=== PATIENT | female | born 1965 | race Caucasian/White ===

== ENCOUNTER 2019-01-17 00:13 | Emergency (ER) | payer MEDICAID ==
[~2019-01-17] VITALS: Ht 167.6 cm; Wt 65.0 kg
[2019-01-17 01:10] LABS: BASOPHILS % 0.2 % (0.0-2.0); EOSINOPHILS % 3.5 % (0.0-5.0); HEMATOCRIT. 27.6 % (36.0-48.0); HEMOGLOBIN. 9.2 g/dL (12.0-16.0); LYMPHOCYTES % 15.4 % (20.0-50.0); MEAN CORPUSCULAR HEMOGLOBIN 29.4 pg (28.0-32.0); MEAN CORPUSCULAR VOLUME 88.1 fL (81.0-99.0); MEAN PLATELET VOLUME 8.8 fl (7.4-10.4); MONOCYTES % 11.3 % (2.0-8.0); NEUTROPHILS % 69.6 % (40.0-76.0); PLATELET 342 x1000/uL (130-400); RED BLOOD CELL COUNT 3.13 mill/uL (4.2-5.4)
[2019-01-17 01:30] LABS: CHLORIDE 109 mEq/L (98-107)
[2019-01-17 01:37] LABS: ETHANOL BLOOD < 10 mg/dL
[2019-01-17 03:18] LABS: CLARITY URINE CLEAR (CLEAR); COLOR URINE YELLOW (YELLOW); KETONES URINE NEGATIVE (NEGATIVE); LEUKOCYTE ESTERASE URINE NEGATIVE (NEGATIVE); NITRITE URINE NEGATIVE (NEGATIVE); OCCULT BLOOD URINE NEGATIVE (NEGATIVE); PH URINE 5.5 (4.5-8.0); PROTEIN URINE 2+ (NEGATIVE); SPECIFIC GRAVITY URINE 1.017 (1.005-1.030); UROBILINOGEN URINE 0.2 E.U./dL (0.2-1.0)
[2019-01-17 03:27] LABS: *AMPHETAMINES SCREEN URINE NEGATIVE (NEGATIVE); *BARBITURATES SCREEN URINE NEGATIVE (NEGATIVE); *BENZODIAZEPINES SCREEN URINE PRESUMTIVE POSITIVE (NEGATIVE); *COCAINE SCREEN URINE NEGATIVE (NEGATIVE)
[2019-01-17 03:28] LABS: CANNABINOID URINE SCREEN NEGATIVE (NEGATIVE); METHADONE URINE SCREEN NEGATIVE (NEGATIVE); OPIATES URINE SCREEN NEGATIVE (NEGATIVE); PHENCYCLIDINE URINE SCREEN NEGATIVE (NEGATIVE)
[2019-01-17] MEDS ORDERED: IBUPROFEN 400MG TABLET PO ONE (15:00)
[2019-01-17 15:33] VITALS: BP 132/87
== END 2019-01-17 16:52 | disposition home or self-care (01) ==
LOC: ER 01:10
DX: T40.4X1A Poisoning by other synthetic narcotics, accidental (unintentional), initial encounter (principal); R44.1 Visual hallucinations; E11.9 Type 2 diabetes mellitus without complications; I10 Essential (primary) hypertension; Z88.2 Allergy status to sulfonamides; Y92.89 Other specified places as the place of occurrence of the external cause
CPT/HCPCS: 36415; 80305; 80307; 80320; 80329; 81003; 82962; 93005; 99284; G0480

== ENCOUNTER 2020-09-16 13:52 | Emergency (ER) | payer MEDICAID ==
[~2020-09-16] VITALS: Ht 165.1 cm; Wt 88.0 kg
[2020-09-16] MEDS ORDERED: TRAMADOL 50MG TABLET PO ONE (17:00)
[2020-09-16 17:29] LABS: BASOPHILS % 0.6 % (0.0-2.0); EOSINOPHILS % 5.1 % (0.0-5.0); HEMATOCRIT. 29.3 % (36.0-48.0); HEMOGLOBIN. 9.6 g/dL (12.0-16.0); LYMPHOCYTES % 34.2 % (20.0-50.0); MEAN CORPUSCULAR HEMOGLOBIN 30.9 pg (28.0-32.0); MEAN CORPUSCULAR VOLUME 94.4 fL (81.0-99.0); MEAN PLATELET VOLUME 7.5 fl (7.4-10.4); NEUTROPHILS % 55.1 % (40.0-76.0); PLATELET 473 x1000/uL (130-400); RED CELL DISTRIBUTION WIDTH 14.2 % (11.6-14.6)
[2020-09-16 17:32] LABS: CHLORIDE 113 mEq/L (98-107)
[2020-09-16] MEDS ORDERED: FURO-151 MT (23:26)
[2020-09-16] MEDS ORDERED: PROT40 MT (23:27)
[2020-09-16 23:30] VITALS: BP 158/72
== END 2020-09-16 23:40 | disposition home or self-care (01) ==
LOC: ER 13:52
DX: K21.9 Gastro-esophageal reflux disease without esophagitis (principal); E11.9 Type 2 diabetes mellitus without complications; I10 Essential (primary) hypertension; Z88.2 Allergy status to sulfonamides
CPT/HCPCS: 36415; 71046; 80048; 80076; 82962; 85025; 93005; 99285

== ENCOUNTER 2021-03-13 05:51 | Emergency (ER) | payer MEDICAID ==
[~2021-03-13] VITALS: Ht 165.1 cm; Wt 87.0 kg
[~2021-03-13 05:51] MED LIST: ALPR1TAB2 PO; AMLO10TA4 MT; CYCL10TA7 PO; ESCI20TA PO; FURO-151 MT; GABA-529 PO; GLIP5TAB12 MT; INSLIS SUBCUT; LEVO137T32 MT; LEVVL SQ; PROT40 MT; TRAM100T34 PO; ZOLP10TA2 PO
[2021-03-13] MEDS ORDERED: ACETAMINOPHEN WITH CODEINE 300/30MG TABLET PO ONE (07:00)
[2021-03-13] MEDS ORDERED: T3 PO (08:51)
[2021-03-13] MEDS ORDERED: IBUPROFEN 800MG TABLET PO ONE (09:00)
[2021-03-13 09:11] VITALS: BP 145/79
== END 2021-03-13 09:10 | disposition home or self-care (01) ==
LOC: ER 05:51
DX: M25.512 Pain in left shoulder (principal); E11.9 Type 2 diabetes mellitus without complications; I10 Essential (primary) hypertension; Z98.890 Other specified postprocedural states; Z79.899 Other long term (current) drug therapy; Z88.2 Allergy status to sulfonamides
CPT/HCPCS: 71045; 73030; 93005; 99284

== ENCOUNTER 2021-03-19 15:23 | Inpatient (IN) | payer MEDICAID ==
[~2021-03-19] VITALS: Ht 165.1 cm; Wt 56.7 kg
[~2021-03-19 15:23] MED LIST changes: +T3 PO
[2021-03-19] MEDS ORDERED: SUMATRIPTAN SUCCINATE 6MG/0.5ML VIAL SUBCUT ONE (18:30)
[2021-03-19] MEDS ORDERED: ONDANSETRON 4MG ODT PO ONE (18:30)
[2021-03-19] MEDS ORDERED: CLONIDINE 0.2MG TABLET PO ONE (19:30)
[2021-03-19] MEDS ORDERED: FAMOTIDINE 20MG TABLET PO ONE (19:30)
[2021-03-19] MEDS ORDERED: TRAMADOL 50MG TABLET PO ONE (19:30)
[2021-03-19 19:36] LABS: CLARITY URINE CLEAR (CLEAR); COLOR URINE YELLOW (YELLOW); KETONES URINE TRACE (NEGATIVE); LEUKOCYTE ESTERASE URINE NEGATIVE (NEGATIVE); NITRITE URINE NEGATIVE (NEGATIVE); OCCULT BLOOD URINE TRACE (NEGATIVE); PROTEIN URINE 4+ (NEGATIVE); SPECIFIC GRAVITY URINE 1.023 (1.005-1.030); UROBILINOGEN URINE 0.2 E.U./dL (0.2-1.0)
[2021-03-19 20:17] LABS: BASOPHILS % 0.5 % (0.0-2.0); EOSINOPHILS % 0.2 % (0.0-5.0); HEMOGLOBIN. 9.3 g/dL (12.0-16.0); LYMPHOCYTES % 17.8 % (20.0-50.0); MEAN CORPUSCULAR HEMOGLOBIN 28.2 pg (28.0-32.0); MEAN CORPUSCULAR VOLUME 88.1 fL (81.0-99.0); MEAN PLATELET VOLUME 8.4 fl (7.4-10.4); MONOCYTES % 3.1 % (2.0-8.0); NEUTROPHILS % 78.4 % (40.0-76.0); PLATELET 411 x1000/uL (130-400); RED BLOOD CELL COUNT 3.29 mill/uL (4.2-5.4); RED CELL DISTRIBUTION WIDTH 14.7 % (11.6-14.6)
[2021-03-19] MEDS ORDERED: PROCHLORPERAZINE MALEATE 10MG TABLET PO ONE (20:45)
[2021-03-19] MEDS ORDERED: KETOROLAC 60MG/2ML VIAL IM ONE (20:45)
[2021-03-19] MEDS ORDERED: CALCIUM CHLORIDE 1,000 MG in DEXT 5% WATER 90 ML IV ONE (21:00)
[2021-03-19] MEDS ORDERED: INSULIN REGULAR (HUMULIN R) 300UNITS/3ML VIAL SUBCUT ONE (21:00)
[2021-03-19] MEDS ORDERED: DEXTROSE 50% WATER 50ML SYRINGE IV NR (21:00)
[2021-03-19] MEDS ORDERED: SODIUM POLYSTYRENE SULFONATE 15 G/60 ML BOT PO NR (21:00)
[2021-03-19] MEDS ORDERED: CALCIUM GLUCONATE 1GM PREMIX 50 ML IV NR (21:30)
[2021-03-20] VITALS (7 sets, daily range): BP systolic 124–180; BP diastolic 57–80
[2021-03-20] MEDS ORDERED: NALOXONE HCL 0.4 MG/ML 1ML VIAL IV PRN (01:15)
[2021-03-20] MEDS: DIPHENHYDRAMINE 50MG/ML VIAL IV PRN (01:20)
[2021-03-20] MEDS: ONDANSETRON HCL 4MG/2ML INJ IV PRN ×2 (01:20→13:19)
[2021-03-20] MEDS ORDERED: MEDICATION NOT ON FORMULARY EA (Zolpidem Tartrate (Ambien) 10 MG) PO SCH (01:45)
[2021-03-20] MEDS ORDERED: DEXTROSE 50% WATER 50ML SYRINGE IV PRN ×2 (01:45)
[2021-03-20] MEDS: CLONIDINE 0.2MG TABLET PO PRN (03:15)
[2021-03-20] MEDS: MORPHINE SULFATE 2 MG/ML CPJ (NOT FOR IM USE) IV PRN ×4 (03:15→18:25)
[2021-03-20] MEDS: BLOOD SUGAR DIAGNOSTIC STRIP TEST SCH ×4 (06:38→20:41)
[2021-03-20] MEDS ORDERED: BLOOD SUGAR DIAGNOSTIC STRIP TEST SCH (06:40)
[2021-03-20] MEDS: PANTOPRAZOLE 40MG DR TABLET PO SCH (06:44)
[2021-03-20] MEDS: INSULIN LISPRO 100 UNITS/ML SUBCUT SCH ×4 (06:45→20:41)
[2021-03-20] MEDS: FUROSEMIDE 40MG TABLET PO SCH (08:16)
[2021-03-20] MEDS: HYDROCODONE/ACETAMINOPHEN 5/325MG TABLET PO PRN (08:16)
[2021-03-20] MEDS: LEVOTHYROXINE SODIUM 137MCG TABLET PO SCH (08:17)
[2021-03-20] MEDS: HYDRALAZINE HCL 50MG TABLET PO SCH ×2 (08:17→20:41)
[2021-03-20] MEDS: CITALOPRAM HYDROBROMIDE 10MG TABLET PO SCH (08:17)
[2021-03-20] MEDS: AMLODIPINE 10MG TABLET PO SCH (08:18)
[2021-03-20] MEDS: GABAPENTIN 100MG CAPSULE PO SCH ×3 (08:18→17:30)
[2021-03-20] MEDS: ENOXAPARIN 30MG/0.3ML SYR SUBCUT SCH (08:19)
[2021-03-20] MEDS ORDERED: MEDICATION NOT ON FORMULARY EA (Escitalopram Oxalate (Lexapro) 20 MG) PO SCH (09:00)
[2021-03-20] MEDS ORDERED: ENOXAPARIN 40MG/0.4ML SYR SUBCUT SCH (09:00)
[2021-03-20] MEDS: INSULIN GLARGINE UD 100 UNITS/ML SYR SUBCUT SCH (20:41)
[2021-03-20] MEDS: ZOLPIDEM TARTRATE 5MG TABLET PO PRN (20:42)
[2021-03-21] VITALS: BP 118/51
[2021-03-21 04:00] VITALS: BP 129/59
[2021-03-21] MEDS: BLOOD SUGAR DIAGNOSTIC STRIP TEST SCH ×4 (06:00→21:22)
[2021-03-21] MEDS: PANTOPRAZOLE 40MG DR TABLET PO SCH (06:01)
[2021-03-21] MEDS: INSULIN LISPRO 100 UNITS/ML SUBCUT SCH ×4 (06:01→21:22)
[2021-03-21] MEDS: MORPHINE SULFATE 2 MG/ML CPJ (NOT FOR IM USE) IV PRN ×3 (06:35→19:49)
[2021-03-21 08:00] VITALS: BP 133/77
[2021-03-21] MEDS: ENOXAPARIN 30MG/0.3ML SYR SUBCUT SCH (09:00)
[2021-03-21] MEDS: GABAPENTIN 100MG CAPSULE PO SCH ×3 (09:06→17:27)
[2021-03-21] MEDS: AMLODIPINE 10MG TABLET PO SCH (09:06)
[2021-03-21] MEDS: HYDRALAZINE HCL 50MG TABLET PO SCH ×2 (09:06→21:22)
[2021-03-21] MEDS: CITALOPRAM HYDROBROMIDE 10MG TABLET PO SCH (09:06)
[2021-03-21] MEDS: FUROSEMIDE 40MG TABLET PO SCH (09:06)
[2021-03-21] MEDS: LEVOTHYROXINE SODIUM 137MCG TABLET PO SCH (09:09)
[2021-03-21 12:00] VITALS: BP 122/50
[2021-03-21 16:00] VITALS: BP 147/74
[2021-03-21] MEDS: ONDANSETRON HCL 4MG/2ML INJ IV PRN (18:54)
[2021-03-21 20:00] VITALS: BP 169/75
[2021-03-21] MEDS: ZOLPIDEM TARTRATE 5MG TABLET PO PRN (21:22)
[2021-03-21] MEDS: INSULIN GLARGINE UD 100 UNITS/ML SYR SUBCUT SCH (21:23)
[2021-03-21] MEDS: DIPHENHYDRAMINE 50MG/ML VIAL IV PRN (22:56)
[2021-03-21] MEDS: CLONIDINE 0.2MG TABLET PO PRN (23:05)
[2021-03-22] VITALS (7 sets, daily range): BP systolic 112–174; BP diastolic 55–87
[2021-03-22] MEDS: MORPHINE SULFATE 2 MG/ML CPJ (NOT FOR IM USE) IV PRN ×3 (00:18→20:40)
[2021-03-22] MEDS: ONDANSETRON HCL 4MG/2ML INJ IV PRN ×2 (02:21→22:37)
[2021-03-22] MEDS: HYDROCODONE/ACETAMINOPHEN 5/325MG TABLET PO PRN ×2 (02:21→22:37)
[2021-03-22] MEDS: FAMOTIDINE 20MG TABLET PO SCH (06:31)
[2021-03-22] MEDS: LEVOTHYROXINE SODIUM 137MCG TABLET PO SCH (06:31)
[2021-03-22] MEDS: BLOOD SUGAR DIAGNOSTIC STRIP TEST SCH ×4 (06:32→20:40)
[2021-03-22] MEDS: INSULIN LISPRO 100 UNITS/ML SUBCUT SCH ×4 (06:32→20:41)
[2021-03-22 06:35] LABS: BASOPHILS % 0.3 % (0.0-2.0); EOSINOPHILS % 2.2 % (0.0-5.0); HEMATOCRIT. 23.3 % (36.0-48.0); LYMPHOCYTES % 40.5 % (20.0-50.0); MEAN CORPUSCULAR HEMOGLOBIN 30.2 pg (28.0-32.0); MEAN CORPUSCULAR VOLUME 88.4 fL (81.0-99.0); MEAN PLATELET VOLUME 8.1 fl (7.4-10.4); MONOCYTES % 6.4 % (2.0-8.0); NEUTROPHILS % 50.6 % (40.0-76.0); PLATELET 363 x1000/uL (130-400); RED BLOOD CELL COUNT 2.64 mill/uL (4.2-5.4); RED CELL DISTRIBUTION WIDTH 15.5 % (11.6-14.6)
[2021-03-22] MEDS: ENOXAPARIN 30MG/0.3ML SYR SUBCUT SCH (09:12)
[2021-03-22] MEDS: GABAPENTIN 100MG CAPSULE PO SCH ×3 (09:12→17:35)
[2021-03-22] MEDS: CITALOPRAM HYDROBROMIDE 10MG TABLET PO SCH (09:12)
[2021-03-22] MEDS: FUROSEMIDE 40MG TABLET PO SCH (09:15)
[2021-03-22] MEDS: AMLODIPINE 10MG TABLET PO SCH (09:15)
[2021-03-22] MEDS: HYDRALAZINE HCL 50MG TABLET PO SCH ×2 (11:14→20:39)
[2021-03-22] MEDS: INSULIN GLARGINE UD 100 UNITS/ML SYR SUBCUT SCH (21:49)
[2021-03-22] MEDS: ZOLPIDEM TARTRATE 5MG TABLET PO PRN (21:49)
[2021-03-23] VITALS: BP 134/70
[2021-03-23] MEDS: MORPHINE SULFATE 2 MG/ML CPJ (NOT FOR IM USE) IV PRN (02:18)
[2021-03-23] MEDS: DIPHENHYDRAMINE 50MG/ML VIAL IV PRN ×2 (02:37→09:29)
[2021-03-23 04:00] VITALS: BP 110/56
[2021-03-23] MEDS: LEVOTHYROXINE SODIUM 137MCG TABLET PO SCH (05:56)
[2021-03-23] MEDS: FAMOTIDINE 20MG TABLET PO SCH (05:56)
[2021-03-23] MEDS: BLOOD SUGAR DIAGNOSTIC STRIP TEST SCH (05:56)
[2021-03-23] MEDS: INSULIN LISPRO 100 UNITS/ML SUBCUT SCH (05:57)
[2021-03-23 08:00] VITALS: BP 117/57
[2021-03-23] MEDS: ENOXAPARIN 30MG/0.3ML SYR SUBCUT SCH (08:37)
[2021-03-23] MEDS: AMLODIPINE 10MG TABLET PO SCH (08:40)
[2021-03-23] MEDS: CITALOPRAM HYDROBROMIDE 10MG TABLET PO SCH (08:40)
[2021-03-23] MEDS: GABAPENTIN 100MG CAPSULE PO SCH (08:40)
[2021-03-23] MEDS: HYDRALAZINE HCL 50MG TABLET PO SCH (08:40)
[2021-03-23] MEDS: FUROSEMIDE 40MG TABLET PO SCH (08:41)
[2021-03-23] MEDS: HYDROCODONE/ACETAMINOPHEN 5/325MG TABLET PO PRN (08:50)
[2021-03-23 10:57] VITALS: BP 117/57
== END 2021-03-23 12:45 | disposition home or self-care (01) | DRG 54 ==
LOC: ER 15:23 → 7EST 21:08 → ENRESERV 21:33
PROVIDERS: ADMIT Internal Medicine; ATTEND Internal Medicine
DX: G43.909 Migraine, unspecified, not intractable, without status migrainosus (principal); N17.9 Acute kidney failure, unspecified; E11.22 Type 2 diabetes mellitus with diabetic chronic kidney disease; E11.42 Type 2 diabetes mellitus with diabetic polyneuropathy; D64.9 Anemia, unspecified; E87.5 Hyperkalemia; M47.816 Spondylosis without myelopathy or radiculopathy, lumbar region; R10.9 Unspecified abdominal pain; I12.9 Hypertensive chronic kidney disease with stage 1 through stage 4 chronic kidney disease, or unspecified chronic kidney disease; I25.10 Atherosclerotic heart disease of native coronary artery without angina pectoris; N18.9 Chronic kidney disease, unspecified; Z82.49 Family history of ischemic heart disease and other diseases of the circulatory system; Z83.3 Family history of diabetes mellitus; Z79.899 Other long term (current) drug therapy; Z88.2 Allergy status to sulfonamides
CPT/HCPCS: 36415; 72110; 80048; 81003; 82962; 83036; 85025; 93005; 99291; J0610; J1200; J1650; J1815; J2270; J2405; J3030; Q0162; Q0164

== ENCOUNTER 2021-03-27 07:34 | Emergency (ER) | payer MEDICAID ==
[~2021-03-27] VITALS: Ht 165.1 cm; Wt 92.0 kg
[~2021-03-27 07:34] MED LIST changes: -GLIP5TAB12 MT
[2021-03-27 08:56] LABS: CHLORIDE 110 mEq/L (98-107)
[2021-03-27 09:45] LABS: BASOPHILS % 0.5 % (0.0-2.0); EOSINOPHILS % 0.9 % (0.0-5.0); HEMATOCRIT. 26.1 % (36.0-48.0); HEMOGLOBIN. 8.5 g/dL (12.0-16.0); LYMPHOCYTES % 19.3 % (20.0-50.0); MEAN CORPUSCULAR HEMOGLOBIN 29.2 pg (28.0-32.0); MEAN CORPUSCULAR VOLUME 89.6 fL (81.0-99.0); MEAN PLATELET VOLUME 7.7 fl (7.4-10.4); MONOCYTES % 4.2 % (2.0-8.0); NEUTROPHILS % 75.1 % (40.0-76.0); PLATELET 404 x1000/uL (130-400); RED BLOOD CELL COUNT 2.91 mill/uL (4.2-5.4); RED CELL DISTRIBUTION WIDTH 15.2 % (11.6-14.6)
[2021-03-27 09:49] LABS: CLARITY URINE TURBID (CLEAR); COLOR URINE YELLOW (YELLOW); KETONES URINE NEGATIVE (NEGATIVE); LEUKOCYTE ESTERASE URINE 1+ (NEGATIVE); NITRITE URINE NEGATIVE (NEGATIVE); OCCULT BLOOD URINE 1+ (NEGATIVE); PH URINE 6.5 (4.5-8.0); PROTEIN URINE 3+ (NEGATIVE); SPECIFIC GRAVITY URINE 1.017 (1.005-1.030); UROBILINOGEN URINE 0.2 E.U./dL (0.2-1.0)
[2021-03-27] MEDS ORDERED: MORPHINE SULFATE 4 MG/ML CPJ (NOT FOR IM USE) IV ONE (10:45)
[2021-03-27 14:13] VITALS: BP 156/97
[2021-03-27] MEDS ORDERED: ACETAMINOPHEN 325MG TABLET PO ONE (21:45)
[2021-03-27] MEDS ORDERED: METOCLOPRAMIDE HCL 10MG/2ML VIAL IV ONE (21:45)
[2021-03-27] MEDS ORDERED: DIPHENHYDRAMINE 50MG/ML VIAL IV ONE (21:45)
[2021-03-27] MEDS ORDERED: SODIUM CHLORIDE 0.9% 1,000 ML IV ONE (21:49)
== END 2021-03-27 14:15 | disposition home or self-care (01) ==
LOC: ER 07:44
DX: R53.1 Weakness (principal); R05.9 Cough, unspecified; J34.89 Other specified disorders of nose and nasal sinuses; E11.9 Type 2 diabetes mellitus without complications; I10 Essential (primary) hypertension; Z79.899 Other long term (current) drug therapy; Z88.2 Allergy status to sulfonamides
CPT/HCPCS: 36415; 71045; 80053; 81003; 82962; 83880; 84484; 85025; 93005; 96374; 99285; J2270

== ENCOUNTER 2021-03-27 16:27 | Emergency (ER) | payer MEDICAID ==
[~2021-03-27] VITALS: Ht 165.1 cm; Wt 82.0 kg
[2021-03-27 23:20] LABS: CHLORIDE 111 mEq/L (98-107)
[2021-03-27] MEDS ORDERED: ONDANSETRON 4MG ODT PO ONE (23:45)
[2021-03-27] MEDS ORDERED: ACETAMINOPHEN 325MG TABLET PO ONE (23:45)
[2021-03-28 00:10] VITALS: BP 154/65
== END 2021-03-28 00:15 | disposition home or self-care (01) ==
LOC: ER 16:27
DX: R51.9 Headache, unspecified (principal); E11.9 Type 2 diabetes mellitus without complications; E78.00 Pure hypercholesterolemia, unspecified; I10 Essential (primary) hypertension; Z79.4 Long term (current) use of insulin; Z88.2 Allergy status to sulfonamides
CPT/HCPCS: 36415; 70450; 80053; 82962; 99284; Q0162

== ENCOUNTER 2021-06-23 09:19 | Inpatient (IN) | payer MEDICAID ==
[~2021-06-23] VITALS: Ht 165.1 cm; Wt 86.2 kg
[2021-06-23 11:36] LABS: BASOPHILS % 0.3 % (0.0-2.0); EOSINOPHILS % 0.8 % (0.0-5.0); HEMATOCRIT. 30.5 % (36.0-48.0); HEMOGLOBIN. 9.8 g/dL (12.0-16.0); LYMPHOCYTES % 14.4 % (20.0-50.0); MEAN CORPUSCULAR HEMOGLOBIN 28.3 pg (28.0-32.0); MEAN CORPUSCULAR VOLUME 88.2 fL (81.0-99.0); MEAN PLATELET VOLUME 7.5 fl (7.4-10.4); MONOCYTES % 5.3 % (2.0-8.0); NEUTROPHILS % 79.2 % (40.0-76.0); PLATELET 431 x1000/uL (130-400); RED BLOOD CELL COUNT 3.46 mill/uL (4.2-5.4); RED CELL DISTRIBUTION WIDTH 17.2 % (11.6-14.6)
[2021-06-23 11:42] LABS: CHLORIDE 112 mEq/L (98-107)
[2021-06-23 11:46] LABS: ETHANOL BLOOD < 10 mg/dL
[2021-06-23 11:59] LABS: CLARITY URINE CLEAR (CLEAR); COLOR URINE YELLOW (YELLOW); KETONES URINE NEGATIVE (NEGATIVE); LEUKOCYTE ESTERASE URINE NEGATIVE (NEGATIVE); NITRITE URINE NEGATIVE (NEGATIVE); OCCULT BLOOD URINE 1+ (NEGATIVE); PROTEIN URINE 4+ (NEGATIVE); SPECIFIC GRAVITY URINE 1.018 (1.005-1.030); UROBILINOGEN URINE 0.2 E.U./dL (0.2-1.0)
[2021-06-23 12:14] LABS: *AMPHETAMINES SCREEN URINE NEGATIVE (NEGATIVE); *BARBITURATES SCREEN URINE NEGATIVE (NEGATIVE); *BENZODIAZEPINES SCREEN URINE PRESUMTIVE POSITIVE (NEGATIVE); *COCAINE SCREEN URINE NEGATIVE (NEGATIVE); METHADONE URINE SCREEN NEGATIVE (NEGATIVE); OPIATES URINE SCREEN NEGATIVE (NEGATIVE)
[2021-06-23 12:15] LABS: CANNABINOID URINE SCREEN NEGATIVE (NEGATIVE); PHENCYCLIDINE URINE SCREEN NEGATIVE (NEGATIVE)
[2021-06-23] MEDS ORDERED: SODIUM CHLORIDE 0.9% 1,000 ML IV ONE (14:45)
[2021-06-23] MEDS ORDERED: HYDRALAZINE 20MG/ML VIAL IV NR (15:15)
[2021-06-23] MEDS ORDERED: ACETAMINOPHEN 325MG TABLET PO ONE (16:30)
[2021-06-23 20:00] VITALS: BP 175/83
[2021-06-23] MEDS ORDERED: DOCUSATE SODIUM 100MG CAPSULE PO PRN (21:00)
[2021-06-23] MEDS ORDERED: GUAIFENESIN 200MG/10ML SUGAR FREE UDC PO PRN (21:00)
[2021-06-23] MEDS ORDERED: MAGNESIUM/ALUMINUM HYDROXIDE/SIMETHICONE 30ML UDC PO PRN (21:00)
[2021-06-23] MEDS ORDERED: IPRATROPIUM/ALBUTEROL 0.5-3(2.5)MG/3ML NEB HHN PRN (21:00)
[2021-06-23] MEDS: INSULIN LISPRO 100 UNITS/ML SUBCUT SCH (21:00)
[2021-06-23] MEDS ORDERED: DEXTROSE 50% WATER 50ML SYRINGE IV PRN (21:00)
[2021-06-23] MEDS: BLOOD SUGAR DIAGNOSTIC STRIP TEST SCH (21:10)
[2021-06-23] MEDS: LORAZEPAM 2MG/ML CPJ IV PRN (22:40)
[2021-06-23] MEDS: ENOXAPARIN 30MG/0.3ML SYR SUBCUT SCH (22:42)
[2021-06-24] MEDS: MORPHINE SULFATE 2 MG/ML CPJ (NOT FOR IM USE) IV PRN ×4 (00:41→22:53)
[2021-06-24] MEDS: SODIUM CHLORIDE 0.9% INJ 3ML FLUSH IVF SCH ×3 (06:12→22:53)
[2021-06-24] MEDS: BLOOD SUGAR DIAGNOSTIC STRIP TEST SCH ×4 (06:23→21:00)
[2021-06-24] MEDS: INSULIN LISPRO 100 UNITS/ML SUBCUT SCH ×4 (06:24→23:00)
[2021-06-24 07:23] LABS: BASOPHILS % 0.5 % (0.0-2.0); EOSINOPHILS % 3.3 % (0.0-5.0); HEMATOCRIT. 26.5 % (36.0-48.0); HEMOGLOBIN. 8.8 g/dL (12.0-16.0); MEAN PLATELET VOLUME 7.8 fl (7.4-10.4); MONOCYTES % 7.3 % (2.0-8.0); NEUTROPHILS % 60.9 % (40.0-76.0); PLATELET 340 x1000/uL (130-400); RED BLOOD CELL COUNT 3.05 mill/uL (4.2-5.4); RED CELL DISTRIBUTION WIDTH 17.1 % (11.6-14.6)
[2021-06-24 08:00] VITALS: BP 196/88
[2021-06-24] MEDS: ACETAMINOPHEN 325MG TABLET PO PRN (08:53)
[2021-06-24] MEDS: CLONIDINE 0.1MG TABLET PO PRN (08:53)
[2021-06-24 09:29] LABS: CHLORIDE 112 mEq/L (98-107)
[2021-06-24] MEDS: HYDROCODONE/ACETAMINOPHEN 5/325MG TABLET PO PRN (11:18)
[2021-06-24 12:00] VITALS: BP 169/85
[2021-06-24] MEDS: HYDRALAZINE 20MG/ML VIAL IV PRN ×2 (12:16→22:52)
[2021-06-24 16:00] VITALS: BP 158/74
[2021-06-24 20:00] VITALS: BP 176/75
[2021-06-24] MEDS: ENOXAPARIN 30MG/0.3ML SYR SUBCUT SCH (22:44)
[2021-06-24] MEDS: LORAZEPAM 2MG/ML CPJ IV PRN (23:57)
[2021-06-25] VITALS (8 sets, daily range): BP systolic 118–181; BP diastolic 42–84
[2021-06-25] MEDS: HYDROCODONE/ACETAMINOPHEN 5/325MG TABLET PO PRN ×2 (02:35→10:31)
[2021-06-25] MEDS: ONDANSETRON HCL 4MG/2ML INJ IV PRN ×3 (03:01→21:30)
[2021-06-25] MEDS: SODIUM CHLORIDE 0.9% INJ 3ML FLUSH IVF SCH ×3 (05:30→21:00)
[2021-06-25] MEDS: MORPHINE SULFATE 2 MG/ML CPJ (NOT FOR IM USE) IV PRN ×3 (05:30→20:49)
[2021-06-25] MEDS: INSULIN LISPRO 100 UNITS/ML SUBCUT SCH ×4 (06:48→20:59)
[2021-06-25] MEDS: BLOOD SUGAR DIAGNOSTIC STRIP TEST SCH ×4 (06:48→20:44)
[2021-06-25] MEDS: CLONIDINE 0.1MG TABLET PO PRN ×2 (12:51→23:36)
[2021-06-25] MEDS: HYDRALAZINE 20MG/ML VIAL IV PRN (17:59)
[2021-06-25] MEDS: ENOXAPARIN 30MG/0.3ML SYR SUBCUT SCH (20:44)
[2021-06-25] MEDS: DIPHENHYDRAMINE 50MG/ML VIAL IV PRN (22:06)
[2021-06-25] MEDS: ZOLPIDEM TARTRATE 5MG TABLET PO PRN (23:37)
[2021-06-26] MEDS: MORPHINE SULFATE 2 MG/ML CPJ (NOT FOR IM USE) IV PRN ×3 (02:02→21:46)
[2021-06-26 04:00] VITALS: BP 139/85
[2021-06-26] MEDS: INSULIN LISPRO 100 UNITS/ML SUBCUT SCH ×4 (05:48→21:43)
[2021-06-26] MEDS: BLOOD SUGAR DIAGNOSTIC STRIP TEST SCH ×4 (05:48→21:07)
[2021-06-26] MEDS: SODIUM CHLORIDE 0.9% INJ 3ML FLUSH IVF SCH ×3 (05:48→21:51)
[2021-06-26] MEDS: HYDROCODONE/ACETAMINOPHEN 5/325MG TABLET PO PRN ×2 (05:58→16:33)
[2021-06-26 08:00] VITALS: BP 141/58
[2021-06-26 11:11] LABS: HEMATOCRIT 26.2 % (36.0-48.0); HEMOGLOBIN 8.6 g/dL (12.0-16.0); MEAN CORPUSCULAR HEMOGLOBIN 28.9 pg (28.0-32.0); MEAN CORPUSCULAR VOLUME 88.5 fL (81.0-99.0); PLATELET 286 x1000/uL (130-400); RED BLOOD CELL COUNT 2.97 mill/uL (4.2-5.4); RED CELL DISTRIBUTION WIDTH 16.9 % (11.6-14.6)
[2021-06-26 11:34] LABS: PHOSPHORUS 3.8 mg/dL (2.5-4.9)
[2021-06-26 12:17] VITALS: BP 147/79
[2021-06-26] MEDS: DIPHENHYDRAMINE 50MG/ML VIAL IV PRN (12:45)
[2021-06-26 16:00] VITALS: BP 177/82
[2021-06-26] MEDS: CLONIDINE 0.1MG TABLET PO PRN ×2 (16:36→22:04)
[2021-06-26 20:00] VITALS: BP 166/76
[2021-06-26] MEDS: ENOXAPARIN 30MG/0.3ML SYR SUBCUT SCH (21:43)
[2021-06-26] MEDS: ZOLPIDEM TARTRATE 5MG TABLET PO PRN (21:44)
[2021-06-26] MEDS: POLYVINYL ALCOHOL OPHTH DROPS 15ML BOTHEYE PRN (22:06)
[2021-06-27] VITALS (7 sets, daily range): BP systolic 113–184; BP diastolic 54–79
[2021-06-27] MEDS: POLYVINYL ALCOHOL OPHTH DROPS 15ML BOTHEYE PRN ×4 (03:30→19:33)
[2021-06-27] MEDS: MORPHINE SULFATE 2 MG/ML CPJ (NOT FOR IM USE) IV PRN ×3 (03:55→22:19)
[2021-06-27 06:08] LABS: BASOPHILS % 0.5 % (0.0-2.0); EOSINOPHILS % 4.3 % (0.0-5.0); HEMATOCRIT. 25.7 % (36.0-48.0); HEMOGLOBIN. 8.5 g/dL (12.0-16.0); MEAN CORPUSCULAR HEMOGLOBIN 29.2 pg (28.0-32.0); MEAN PLATELET VOLUME 8.2 fl (7.4-10.4); MONOCYTES % 8.5 % (2.0-8.0); NEUTROPHILS % 53.7 % (40.0-76.0); PLATELET 274 x1000/uL (130-400); RED BLOOD CELL COUNT 2.92 mill/uL (4.2-5.4); RED CELL DISTRIBUTION WIDTH 17.3 % (11.6-14.6)
[2021-06-27] MEDS: INSULIN LISPRO 100 UNITS/ML SUBCUT SCH ×4 (06:23→20:40)
[2021-06-27] MEDS: BLOOD SUGAR DIAGNOSTIC STRIP TEST SCH ×3 (06:23→17:53)
[2021-06-27] MEDS: SODIUM CHLORIDE 0.9% INJ 3ML FLUSH IVF SCH (06:24)
[2021-06-27] MEDS: HYDROCODONE/ACETAMINOPHEN 5/325MG TABLET PO PRN (08:56)
[2021-06-27] MEDS: CLONIDINE 0.1MG TABLET PO PRN ×2 (12:32→20:14)
[2021-06-27] MEDS: ONDANSETRON HCL 4MG/2ML INJ IV PRN (12:32)
[2021-06-27] MEDS: ENOXAPARIN 30MG/0.3ML SYR SUBCUT SCH (20:30)
[2021-06-27] MEDS: LORAZEPAM 2MG/ML CPJ IV PRN (20:30)
[2021-06-27] MEDS: ZOLPIDEM TARTRATE 5MG TABLET PO PRN ×2 (23:10→23:15)
[2021-06-28] VITALS (8 sets, daily range): BP systolic 128–169; BP diastolic 59–90
[2021-06-28] MEDS: HYDRALAZINE 20MG/ML VIAL IV PRN (00:14)
[2021-06-28] MEDS: ONDANSETRON HCL 4MG/2ML INJ IV PRN (00:14)
[2021-06-28] MEDS: DIPHENHYDRAMINE 50MG/ML VIAL IV PRN ×3 (01:46→13:56)
[2021-06-28] MEDS: INSULIN LISPRO 100 UNITS/ML SUBCUT SCH ×4 (06:18→20:45)
[2021-06-28 06:59] LABS: BASOPHILS % 0.5 % (0.0-2.0); EOSINOPHILS % 3.2 % (0.0-5.0); HEMATOCRIT. 26.5 % (36.0-48.0); HEMOGLOBIN. 8.6 g/dL (12.0-16.0); LYMPHOCYTES % 28.2 % (20.0-50.0); MEAN CORPUSCULAR HEMOGLOBIN 28.6 pg (28.0-32.0); MEAN CORPUSCULAR VOLUME 87.7 fL (81.0-99.0); MEAN PLATELET VOLUME 8.4 fl (7.4-10.4); MONOCYTES % 7.4 % (2.0-8.0); NEUTROPHILS % 60.7 % (40.0-76.0); PLATELET 277 x1000/uL (130-400); RED BLOOD CELL COUNT 3.02 mill/uL (4.2-5.4); RED CELL DISTRIBUTION WIDTH 17.5 % (11.6-14.6)
[2021-06-28] MEDS: BLOOD SUGAR DIAGNOSTIC STRIP TEST SCH ×4 (07:38→21:00)
[2021-06-28] MEDS: SODIUM CHLORIDE 0.9% INJ 3ML FLUSH IVF SCH ×3 (09:15→22:00)
[2021-06-28] MEDS: MORPHINE SULFATE 2 MG/ML CPJ (NOT FOR IM USE) IV PRN ×2 (09:16→20:43)
[2021-06-28] MEDS: ACETAMINOPHEN 325MG TABLET PO PRN (09:16)
[2021-06-28] MEDS: POLYVINYL ALCOHOL OPHTH DROPS 15ML BOTHEYE PRN (12:31)
[2021-06-28 17:09] LABS: CREATININE URINE (RAW) 39.4 mg/dl
[2021-06-28] MEDS: NEO/POLYMYX B SULF/DEXAMETH 0.1% OPHTH SUSP 5ML BOTHEYE SCH (17:14)
[2021-06-28] MEDS: ENOXAPARIN 30MG/0.3ML SYR SUBCUT SCH (20:42)
[2021-06-28] MEDS ORDERED: NALOXONE HCL 0.4MG/ML VIAL IV PRN (22:15)
[2021-06-28] MEDS: ZOLPIDEM TARTRATE 5MG TABLET PO PRN (22:18)
[2021-06-28] MEDS: HYDROCODONE/ACETAMINOPHEN 5/325MG TABLET PO PRN (22:20)
[2021-06-29] VITALS (9 sets, daily range): BP systolic 117–182; BP diastolic 60–92
[2021-06-29] MEDS: LORAZEPAM 2MG/ML CPJ IV PRN ×3 (01:14→20:02)
[2021-06-29] MEDS: NEO/POLYMYX B SULF/DEXAMETH 0.1% OPHTH SUSP 5ML BOTHEYE SCH ×4 (01:16→18:22)
[2021-06-29] MEDS: MORPHINE SULFATE 2 MG/ML CPJ (NOT FOR IM USE) IV PRN ×3 (04:11→18:24)
[2021-06-29] MEDS: INSULIN LISPRO 100 UNITS/ML SUBCUT SCH ×4 (05:42→21:45)
[2021-06-29] MEDS: BLOOD SUGAR DIAGNOSTIC STRIP TEST SCH ×4 (07:10→21:00)
[2021-06-29] MEDS: CLONIDINE 0.1MG TABLET PO PRN (09:24)
[2021-06-29] MEDS: SODIUM CHLORIDE 0.9% INJ 3ML FLUSH IVF SCH ×3 (09:27→22:00)
[2021-06-29] MEDS: POLYVINYL ALCOHOL OPHTH DROPS 15ML BOTHEYE PRN (09:29)
[2021-06-29 11:10] LABS: BASOPHILS % 0.5 % (0.0-2.0); EOSINOPHILS % 3.7 % (0.0-5.0); LYMPHOCYTES % 23.9 % (20.0-50.0); MEAN CORPUSCULAR HEMOGLOBIN 29.4 pg (28.0-32.0); MEAN CORPUSCULAR VOLUME 87.1 fL (81.0-99.0); MEAN PLATELET VOLUME 8.3 fl (7.4-10.4); MONOCYTES % 6.9 % (2.0-8.0); PLATELET 297 x1000/uL (130-400); RED BLOOD CELL COUNT 3.41 mill/uL (4.2-5.4); RED CELL DISTRIBUTION WIDTH 17.4 % (11.6-14.6)
[2021-06-29 11:29] LABS: HEMATOCRIT. 29.7 % (36.0-48.0)
[2021-06-29] MEDS: HYDRALAZINE 20MG/ML VIAL IV PRN ×2 (16:50→20:02)
[2021-06-29] MEDS: ONDANSETRON HCL 4MG/2ML INJ IV PRN (20:02)
[2021-06-29] MEDS: ZOLPIDEM TARTRATE 5MG TABLET PO PRN (21:42)
[2021-06-29] MEDS: ENOXAPARIN 30MG/0.3ML SYR SUBCUT SCH (21:42)
[2021-06-30] VITALS (7 sets, daily range): BP systolic 140–191; BP diastolic 59–86
[2021-06-30] MEDS: ONDANSETRON HCL 4MG/2ML INJ IV PRN ×2 (01:11→10:44)
[2021-06-30] MEDS: CLONIDINE 0.1MG TABLET PO PRN ×3 (01:16→18:26)
[2021-06-30] MEDS: MORPHINE SULFATE 2 MG/ML CPJ (NOT FOR IM USE) IV PRN ×2 (01:16→10:45)
[2021-06-30] MEDS: NEO/POLYMYX B SULF/DEXAMETH 0.1% OPHTH SUSP 5ML BOTHEYE SCH ×4 (01:23→18:25)
[2021-06-30] MEDS: ACETAMINOPHEN 325MG TABLET PO PRN (05:31)
[2021-06-30] MEDS: INSULIN LISPRO 100 UNITS/ML SUBCUT SCH ×4 (05:32→21:31)
[2021-06-30 06:46] LABS: BASOPHILS % 0.5 % (0.0-2.0); EOSINOPHILS % 1.7 % (0.0-5.0); HEMATOCRIT. 28.6 % (36.0-48.0); HEMOGLOBIN. 9.6 g/dL (12.0-16.0); LYMPHOCYTES % 31.6 % (20.0-50.0); MEAN CORPUSCULAR HEMOGLOBIN 29.1 pg (28.0-32.0); MEAN PLATELET VOLUME 8.9 fl (7.4-10.4); MONOCYTES % 5.2 % (2.0-8.0); PLATELET 307 x1000/uL (130-400); RED BLOOD CELL COUNT 3.29 mill/uL (4.2-5.4); RED CELL DISTRIBUTION WIDTH 17.8 % (11.6-14.6)
[2021-06-30] MEDS: BLOOD SUGAR DIAGNOSTIC STRIP TEST SCH ×4 (07:10→21:29)
[2021-06-30] MEDS: SODIUM CHLORIDE 0.9% INJ 3ML FLUSH IVF SCH ×3 (09:49→22:54)
[2021-06-30] MEDS: LORAZEPAM 2MG/ML CPJ IV PRN ×2 (13:05→22:52)
[2021-06-30] MEDS: HYDROCODONE/ACETAMINOPHEN 5/325MG TABLET PO PRN (18:27)
[2021-06-30] MEDS ORDERED: HYDRALAZINE 20MG/ML VIAL IV PRN (20:45)
[2021-06-30] MEDS: CLONIDINE 0.2MG TABLET PO SCH (21:29)
[2021-06-30] MEDS: ENOXAPARIN 30MG/0.3ML SYR SUBCUT SCH (21:29)
[2021-07-01] VITALS: BP 169/71
[2021-07-01] MEDS: ZOLPIDEM TARTRATE 5MG TABLET PO PRN (00:25)
[2021-07-01] MEDS: POLYVINYL ALCOHOL OPHTH DROPS 15ML BOTHEYE PRN (00:25)
[2021-07-01] MEDS: NEO/POLYMYX B SULF/DEXAMETH 0.1% OPHTH SUSP 5ML BOTHEYE SCH ×3 (00:26→11:59)
[2021-07-01 04:00] VITALS: BP 132/78
[2021-07-01] MEDS: CLONIDINE 0.2MG TABLET PO SCH ×2 (05:55→15:23)
[2021-07-01] MEDS: SODIUM CHLORIDE 0.9% INJ 3ML FLUSH IVF SCH (05:55)
[2021-07-01] MEDS: BLOOD SUGAR DIAGNOSTIC STRIP TEST SCH ×2 (06:54→11:55)
[2021-07-01] MEDS: INSULIN LISPRO 100 UNITS/ML SUBCUT SCH ×2 (06:57→12:23)
[2021-07-01 08:00] VITALS: BP 144/65
[2021-07-01 12:00] VITALS: BP 173/67
[2021-07-01] MEDS: HYDRALAZINE 20MG/ML VIAL IV PRN (12:00)
[2021-07-01] MEDS: LORAZEPAM 2MG/ML CPJ IV PRN (12:05)
[2021-07-01 16:00] VITALS: BP 135/65
== END 2021-07-01 17:05 | disposition home or self-care (01) | DRG 469 ==
LOC: ER 09:19 → 8WST 16:31 → ENRESERV 17:57
PROVIDERS: ADMIT Internal Medicine; ATTEND Internal Medicine
DX: N17.9 Acute kidney failure, unspecified (principal); E43 Unspecified severe protein-calorie malnutrition; E11.649 Type 2 diabetes mellitus with hypoglycemia without coma; E11.319 Type 2 diabetes mellitus with unspecified diabetic retinopathy without macular edema; I12.0 Hypertensive chronic kidney disease with stage 5 chronic kidney disease or end stage renal disease; E11.22 Type 2 diabetes mellitus with diabetic chronic kidney disease; D64.9 Anemia, unspecified; E03.9 Hypothyroidism, unspecified; E11.40 Type 2 diabetes mellitus with diabetic neuropathy, unspecified; E11.51 Type 2 diabetes mellitus with diabetic peripheral angiopathy without gangrene; E78.00 Pure hypercholesterolemia, unspecified; F17.200 Nicotine dependence, unspecified, uncomplicated; F13.90 Sedative, hypnotic, or anxiolytic use, unspecified, uncomplicated; G43.909 Migraine, unspecified, not intractable, without status migrainosus; M17.0 Bilateral primary osteoarthritis of knee; M85.80 Other specified disorders of bone density and structure, unspecified site; S80.01XA Contusion of right knee, initial encounter; M85.861 Other specified disorders of bone density and structure, right lower leg; F41.9 Anxiety disorder, unspecified; Z20.822 Contact with and (suspected) exposure to COVID-19; W18.39XA Other fall on same level, initial encounter; Z79.4 Long term (current) use of insulin; Z79.899 Other long term (current) drug therapy; Z88.2 Allergy status to sulfonamides; Z79.01 Long term (current) use of anticoagulants; Z82.49 Family history of ischemic heart disease and other diseases of the circulatory system; Z83.3 Family history of diabetes mellitus; Y93.89 Activity, other specified; Y92.89 Other specified places as the place of occurrence of the external cause; Y99.8 Other external cause status; N18.5 Chronic kidney disease, stage 5; H10.9 Unspecified conjunctivitis; Z89.422 Acquired absence of other left toe(s)
CPT/HCPCS: 36415; 71045; 73562; 76770; 80048; 80053; 80305; 80320; 81003; 82575; 82962; 83735; 84100; 84443; 84484; 85025; 85027; 86038; 87426; 93005; 93970; 99285; C1893; J0360; J1200; J1650; J1815; J2060; J2270; J2405; J7030; G0480

== ENCOUNTER 2021-09-02 14:52 | Emergency (ER) | payer MEDICAID ==
[~2021-09-02] VITALS: Ht 167.6 cm; Wt 72.0 kg
[2021-09-02] MEDS ORDERED: HYDROCODONE/ACETAMINOPHEN 5/325MG TABLET PO STA (15:54)
[2021-09-02] MEDS ORDERED: LORAZEPAM 1MG TABLET PO NR (16:15)
[2021-09-02 16:41] LABS: BASOPHILS % 0.5 % (0.0-2.0); EOSINOPHILS % 1.9 % (0.0-5.0); HEMATOCRIT. 29.7 % (36.0-48.0); HEMOGLOBIN. 10.1 g/dL (12.0-16.0); LYMPHOCYTES % 24.9 % (20.0-50.0); MEAN CORPUSCULAR HEMOGLOBIN 29.6 pg (28.0-32.0); MEAN CORPUSCULAR VOLUME 87.3 fL (81.0-99.0); MEAN PLATELET VOLUME 7.7 fl (7.4-10.4); MONOCYTES % 6.9 % (2.0-8.0); NEUTROPHILS % 65.8 % (40.0-76.0); PLATELET 245 x1000/uL (130-400); RED BLOOD CELL COUNT 3.41 mill/uL (4.2-5.4)
[2021-09-02 17:45] VITALS: BP 180/72
== END 2021-09-02 18:33 | disposition home or self-care (01) ==
LOC: ER 14:52 → SUPCPDRO 16:25 → ER 18:33
DX: M25.569 Pain in unspecified knee (principal); F41.9 Anxiety disorder, unspecified; E78.00 Pure hypercholesterolemia, unspecified; I10 Essential (primary) hypertension; Z79.899 Other long term (current) drug therapy; E11.65 Type 2 diabetes mellitus with hyperglycemia
CPT/HCPCS: 36415; 71045; 80048; 85025; 99284

== ENCOUNTER 2021-09-19 09:23 | Inpatient (IN) | payer MEDICAID ==
[~2021-09-19] VITALS: Ht 165.1 cm; Wt 73.9 kg
[2021-09-19] MEDS ORDERED: ACETAMINOPHEN 325MG TABLET PO ONE ×2 (10:15→11:30)
[2021-09-19 10:35] LABS: BASOPHILS % 0.4 % (0.0-2.0); EOSINOPHILS % 1.3 % (0.0-5.0); HEMATOCRIT. 30.9 % (36.0-48.0); HEMOGLOBIN. 9.9 g/dL (12.0-16.0); LYMPHOCYTES % 16.9 % (20.0-50.0); MEAN CORPUSCULAR HEMOGLOBIN 30.1 pg (28.0-32.0); MEAN PLATELET VOLUME 7.7 fl (7.4-10.4); NEUTROPHILS % 75.4 % (40.0-76.0); PLATELET 404 x1000/uL (130-400); RED BLOOD CELL COUNT 3.29 mill/uL (4.2-5.4); RED CELL DISTRIBUTION WIDTH 17.8 % (11.6-14.6)
[2021-09-19 10:44] LABS: CHLORIDE 107 mEq/L (98-107)
[2021-09-19 11:27] LABS: HEPATITIS B SURFACE ANTIGEN NEGATIVE
[2021-09-19] MEDS ORDERED: HYDRALAZINE 20MG/ML VIAL IV PRN (15:30)
[2021-09-19] MEDS ORDERED: IPRATROPIUM/ALBUTEROL 0.5-3(2.5)MG/3ML NEB HHN PRN (15:30)
[2021-09-19] MEDS ORDERED: DIPHENHYDRAMINE 50MG/ML VIAL IV PRN (15:30)
[2021-09-19] MEDS: CLONIDINE 0.1MG TABLET PO PRN (15:51)
[2021-09-19] MEDS: AMLODIPINE 10MG TABLET PO SCH (17:00)
[2021-09-19 20:00] VITALS: BP 184/148
[2021-09-19] MEDS: ACETAMINOPHEN 325MG TABLET PO PRN (20:03)
[2021-09-19] MEDS ORDERED: DEXTROSE 50% WATER 50ML SYRINGE IV PRN (20:45)
[2021-09-19] MEDS ORDERED: NALOXONE HCL 0.4MG/ML VIAL IV PRN (20:45)
[2021-09-19] MEDS: HYDROCODONE/ACETAMINOPHEN 5/325MG TABLET PO PRN (20:55)
[2021-09-19] MEDS: ONDANSETRON HCL 4MG/2ML INJ IV PRN (20:55)
[2021-09-19] MEDS: LORAZEPAM 1MG TABLET PO PRN (21:04)
[2021-09-19] MEDS: BLOOD SUGAR DIAGNOSTIC STRIP TEST SCH (21:44)
[2021-09-19] MEDS: PANTOPRAZOLE SODIUM 40 MG/VIAL IV SCH (21:52)
[2021-09-19] MEDS: MORPHINE SULFATE 2 MG/ML CPJ (NOT FOR IM USE) IV PRN (21:53)
[2021-09-19] MEDS: INSULIN LISPRO 100 UNITS/ML SUBCUT SCH (22:26)
[2021-09-19 23:10] LABS: HEMOGLOBIN 11.3 g/dL (12.0-16.0); MEAN CORPUSCULAR HEMOGLOBIN 30.4 pg (28.0-32.0); MEAN CORPUSCULAR VOLUME 91.9 fL (81.0-99.0); PLATELET 455 x1000/uL (130-400); RED CELL DISTRIBUTION WIDTH 17.8 % (11.6-14.6)
[2021-09-20] VITALS: BP 131/83
[2021-09-20 04:00] VITALS: BP 156/78
[2021-09-20] MEDS: MORPHINE SULFATE 2 MG/ML CPJ (NOT FOR IM USE) IV PRN ×2 (05:00→10:27)
[2021-09-20] MEDS: INSULIN LISPRO 100 UNITS/ML SUBCUT SCH ×4 (06:32→21:00)
[2021-09-20] MEDS: BLOOD SUGAR DIAGNOSTIC STRIP TEST SCH ×4 (06:32→21:20)
[2021-09-20 06:48] LABS: CHLORIDE 111 mEq/L (98-107)
[2021-09-20 06:50] LABS: BASOPHILS % 0.4 % (0.0-2.0); EOSINOPHILS % 0.8 % (0.0-5.0); HEMATOCRIT. 30.8 % (36.0-48.0); HEMOGLOBIN. 10.2 g/dL (12.0-16.0); LYMPHOCYTES % 16.7 % (20.0-50.0); MEAN CORPUSCULAR HEMOGLOBIN 29.7 pg (28.0-32.0); MONOCYTES % 4.9 % (2.0-8.0); NEUTROPHILS % 77.2 % (40.0-76.0); PLATELET 436 x1000/uL (130-400); RED BLOOD CELL COUNT 3.42 mill/uL (4.2-5.4); RED CELL DISTRIBUTION WIDTH 17.5 % (11.6-14.6)
[2021-09-20 08:00] VITALS: BP 167/97
[2021-09-20] MEDS ORDERED: LEVOTHYROXINE SODIUM 137MCG TABLET PO SCH (09:00)
[2021-09-20] MEDS: PANTOPRAZOLE SODIUM 40 MG/VIAL IV SCH (10:05)
[2021-09-20] MEDS: GABAPENTIN 100MG CAPSULE PO SCH ×3 (10:07→17:40)
[2021-09-20] MEDS: AMLODIPINE 10MG TABLET PO SCH (10:07)
[2021-09-20] MEDS: LEVOTHYROXINE SODIUM 137MCG TABLET PO SCH (11:36)
[2021-09-20] MEDS: ONDANSETRON HCL 4MG/2ML INJ IV PRN ×2 (11:36→21:17)
[2021-09-20 12:00] VITALS: BP 140/87
[2021-09-20 16:00] VITALS: BP 138/79
[2021-09-20 20:00] VITALS: BP 157/82
[2021-09-20] MEDS: HYDROCODONE/ACETAMINOPHEN 5/325MG TABLET PO PRN (20:56)
[2021-09-20] MEDS: LORAZEPAM 1MG TABLET PO PRN ×2 (21:54→21:56)
[2021-09-21] VITALS: BP 134/81
[2021-09-21 04:00] VITALS: BP 145/86
[2021-09-21] MEDS: BLOOD SUGAR DIAGNOSTIC STRIP TEST SCH ×4 (06:21→20:45)
[2021-09-21] MEDS: LEVOTHYROXINE SODIUM 137MCG TABLET PO SCH (06:21)
[2021-09-21] MEDS: INSULIN LISPRO 100 UNITS/ML SUBCUT SCH ×4 (06:26→20:45)
[2021-09-21 06:49] LABS: BASOPHILS % 0.6 % (0.0-2.0); EOSINOPHILS % 1.8 % (0.0-5.0); HEMATOCRIT. 26.5 % (36.0-48.0); HEMOGLOBIN. 8.7 g/dL (12.0-16.0); LYMPHOCYTES % 27.3 % (20.0-50.0); MEAN CORPUSCULAR HEMOGLOBIN 29.9 pg (28.0-32.0); MEAN CORPUSCULAR VOLUME 91.5 fL (81.0-99.0); MEAN PLATELET VOLUME 7.9 fl (7.4-10.4); MONOCYTES % 6.5 % (2.0-8.0); NEUTROPHILS % 63.8 % (40.0-76.0); PLATELET 368 x1000/uL (130-400); RED CELL DISTRIBUTION WIDTH 17.6 % (11.6-14.6)
[2021-09-21 08:00] VITALS: BP 177/95
[2021-09-21] MEDS: AMLODIPINE 10MG TABLET PO SCH ×2 (08:40→09:00)
[2021-09-21] MEDS: FAMOTIDINE 20MG TABLET PO SCH (08:40)
[2021-09-21] MEDS: GABAPENTIN 100MG CAPSULE PO SCH ×3 (08:40→17:08)
[2021-09-21] MEDS: HYDROCODONE/ACETAMINOPHEN 5/325MG TABLET PO PRN (08:58)
[2021-09-21] MEDS: ONDANSETRON HCL 4MG/2ML INJ IV PRN (09:23)
[2021-09-21 12:00] VITALS: BP 120/79
[2021-09-21] MEDS: MORPHINE SULFATE 2 MG/ML CPJ (NOT FOR IM USE) IV PRN (12:18)
[2021-09-21] MEDS ORDERED: LIDOCAINE HCL 1% 20ML VIAL (Pyxis) INJ ONE (13:05)
[2021-09-21] MEDS ORDERED: IOHEXOL-300 100 ML BOTTLE ONE (13:55)
[2021-09-21 16:00] VITALS: BP 166/73
[2021-09-21] MEDS: MORPHINE SULFATE 4 MG/ML CPJ (NOT FOR IM USE) IV PRN (19:36)
[2021-09-21 20:00] VITALS: BP 118/49
[2021-09-22] VITALS: BP 111/50
[2021-09-22 04:00] VITALS: BP 109/70
[2021-09-22] MEDS: LEVOTHYROXINE SODIUM 137MCG TABLET PO SCH (05:53)
[2021-09-22] MEDS: MORPHINE SULFATE 4 MG/ML CPJ (NOT FOR IM USE) IV PRN ×3 (05:54→20:57)
[2021-09-22] MEDS: BLOOD SUGAR DIAGNOSTIC STRIP TEST SCH ×4 (06:15→20:57)
[2021-09-22] MEDS: INSULIN LISPRO 100 UNITS/ML SUBCUT SCH ×4 (06:15→21:09)
[2021-09-22 08:00] VITALS: BP 149/53
[2021-09-22] MEDS: GABAPENTIN 100MG CAPSULE PO SCH ×3 (08:08→16:39)
[2021-09-22] MEDS: FAMOTIDINE 20MG TABLET PO SCH (08:09)
[2021-09-22] MEDS: AMLODIPINE 10MG TABLET PO SCH (08:09)
[2021-09-22 11:49] VITALS: BP 116/54
[2021-09-22 15:43] VITALS: BP 137/70
[2021-09-22 20:00] VITALS: BP 135/60
[2021-09-23] VITALS: BP 119/64
[2021-09-23] MEDS: ZOLPIDEM TARTRATE 5MG TABLET PO PRN ×2 (02:27→21:01)
[2021-09-23 04:00] VITALS: BP 110/55
[2021-09-23] MEDS: INSULIN LISPRO 100 UNITS/ML SUBCUT SCH ×4 (06:13→20:55)
[2021-09-23] MEDS: BLOOD SUGAR DIAGNOSTIC STRIP TEST SCH ×4 (06:13→20:48)
[2021-09-23] MEDS: LEVOTHYROXINE SODIUM 137MCG TABLET PO SCH (06:19)
[2021-09-23 07:18] LABS: BASOPHILS % 0.2 % (0.0-2.0); EOSINOPHILS % 3.4 % (0.0-5.0); HEMOGLOBIN. 7.7 g/dL (12.0-16.0); LYMPHOCYTES % 38.9 % (20.0-50.0); MEAN CORPUSCULAR HEMOGLOBIN 29.4 pg (28.0-32.0); MEAN CORPUSCULAR VOLUME 91.2 fL (81.0-99.0); MEAN PLATELET VOLUME 8.1 fl (7.4-10.4); MONOCYTES % 8.5 % (2.0-8.0); PLATELET 279 x1000/uL (130-400); RED BLOOD CELL COUNT 2.63 mill/uL (4.2-5.4)
[2021-09-23 08:00] VITALS: BP 136/60
[2021-09-23] MEDS: FAMOTIDINE 20MG TABLET PO SCH (08:08)
[2021-09-23] MEDS: GABAPENTIN 100MG CAPSULE PO SCH ×3 (08:08→16:26)
[2021-09-23] MEDS: AMLODIPINE 10MG TABLET PO SCH (08:08)
[2021-09-23 12:00] VITALS: BP 136/57
[2021-09-23] MEDS: MORPHINE SULFATE 4 MG/ML CPJ (NOT FOR IM USE) IV PRN ×2 (12:46→19:34)
[2021-09-23 16:00] VITALS: BP 138/61
[2021-09-23] MEDS: ONDANSETRON HCL 4MG/2ML INJ IV PRN (19:34)
[2021-09-23 20:00] VITALS: BP 126/57
[2021-09-23] MEDS: EPOETIN ALFA-EPBX 10,000 UNIT/ML VIAL SUBCUT SCH (20:54)
[2021-09-23] MEDS ORDERED: EPOETIN ALFA 10000UNITS/ML VIAL SUBCUT SCH (21:00)
[2021-09-24] VITALS: BP_SYST 131; BP_SYST 154; BP_DIAS 55; BP_DIAS 72
[2021-09-24] MEDS: LORAZEPAM 1MG TABLET PO PRN (03:41)
[2021-09-24 04:00] VITALS: BP 130/64
[2021-09-24] MEDS: BLOOD SUGAR DIAGNOSTIC STRIP TEST SCH ×4 (06:15→21:21)
[2021-09-24] MEDS: LEVOTHYROXINE SODIUM 137MCG TABLET PO SCH (06:19)
[2021-09-24] MEDS: INSULIN LISPRO 100 UNITS/ML SUBCUT SCH ×4 (06:20→21:00)
[2021-09-24 08:00] VITALS: BP 121/44
[2021-09-24 08:06] LABS: BASOPHILS % 0.2 % (0.0-2.0); HEMOGLOBIN. 7.9 g/dL (12.0-16.0); LYMPHOCYTES % 25.7 % (20.0-50.0); MEAN CORPUSCULAR HEMOGLOBIN 30.3 pg (28.0-32.0); MEAN CORPUSCULAR VOLUME 91.7 fL (81.0-99.0); MEAN PLATELET VOLUME 8.7 fl (7.4-10.4); MONOCYTES % 7.6 % (2.0-8.0); NEUTROPHILS % 63.5 % (40.0-76.0); PLATELET 253 x1000/uL (130-400); RED BLOOD CELL COUNT 2.62 mill/uL (4.2-5.4); RED CELL DISTRIBUTION WIDTH 16.7 % (11.6-14.6)
[2021-09-24] MEDS: AMLODIPINE 10MG TABLET PO SCH (08:29)
[2021-09-24] MEDS: FAMOTIDINE 20MG TABLET PO SCH (08:29)
[2021-09-24] MEDS: GABAPENTIN 100MG CAPSULE PO SCH ×3 (08:29→17:42)
[2021-09-24] MEDS: MORPHINE SULFATE 4 MG/ML CPJ (NOT FOR IM USE) IV PRN ×2 (09:03→13:09)
[2021-09-24 12:00] VITALS: BP 151/56
[2021-09-24] MEDS: HYDROCODONE/ACETAMINOPHEN 5/325MG TABLET PO PRN (14:40)
[2021-09-24 16:00] VITALS: BP 137/83
[2021-09-24] MEDS: MORPHINE SULFATE 2 MG/ML CPJ (NOT FOR IM USE) IV PRN ×2 (17:43→21:23)
[2021-09-24 20:00] VITALS: BP 107/56
[2021-09-25] VITALS (7 sets, daily range): BP systolic 126–170; BP diastolic 51–79
[2021-09-25] MEDS: BLOOD SUGAR DIAGNOSTIC STRIP TEST SCH ×4 (06:08→21:12)
[2021-09-25] MEDS: INSULIN LISPRO 100 UNITS/ML SUBCUT SCH ×4 (07:29→21:00)
[2021-09-25] MEDS: AMLODIPINE 10MG TABLET PO SCH (09:06)
[2021-09-25] MEDS: GABAPENTIN 100MG CAPSULE PO SCH ×3 (09:07→17:27)
[2021-09-25] MEDS: FAMOTIDINE 20MG TABLET PO SCH (09:07)
[2021-09-25] MEDS: LEVOTHYROXINE SODIUM 137MCG TABLET PO SCH (09:07)
[2021-09-25] MEDS: HYDROCODONE/ACETAMINOPHEN 5/325MG TABLET PO PRN (09:09)
[2021-09-25] MEDS: MORPHINE SULFATE 4 MG/ML CPJ (NOT FOR IM USE) IV PRN ×3 (12:34→21:17)
[2021-09-25] MEDS ORDERED: NALOXONE HCL 0.4MG/ML VIAL IV PRN (19:00)
[2021-09-25] MEDS: ZOLPIDEM TARTRATE 5MG TABLET PO PRN (21:38)
[2021-09-26] VITALS: BP 157/81
[2021-09-26 04:00] VITALS: BP 137/63
[2021-09-26] MEDS: HYDROCODONE/ACETAMINOPHEN 5/325MG TABLET PO PRN ×2 (05:33→09:20)
[2021-09-26 06:05] LABS: BASOPHILS % 0.3 % (0.0-2.0); EOSINOPHILS % 3.9 % (0.0-5.0); HEMATOCRIT. 22.9 % (36.0-48.0); HEMOGLOBIN. 7.5 g/dL (12.0-16.0); LYMPHOCYTES % 26.6 % (20.0-50.0); MEAN CORPUSCULAR HEMOGLOBIN 29.8 pg (28.0-32.0); MEAN CORPUSCULAR VOLUME 91.1 fL (81.0-99.0); MEAN PLATELET VOLUME 8.9 fl (7.4-10.4); MONOCYTES % 8.6 % (2.0-8.0); NEUTROPHILS % 60.6 % (40.0-76.0); PLATELET 276 x1000/uL (130-400); RED BLOOD CELL COUNT 2.52 mill/uL (4.2-5.4); RED CELL DISTRIBUTION WIDTH 17.1 % (11.6-14.6)
[2021-09-26] MEDS: BLOOD SUGAR DIAGNOSTIC STRIP TEST SCH ×4 (06:20→20:59)
[2021-09-26 08:00] VITALS: BP 139/71
[2021-09-26] MEDS: INSULIN LISPRO 100 UNITS/ML SUBCUT SCH ×4 (08:10→21:00)
[2021-09-26] MEDS: LEVOTHYROXINE SODIUM 137MCG TABLET PO SCH (08:26)
[2021-09-26] MEDS: AMLODIPINE 10MG TABLET PO SCH (08:26)
[2021-09-26] MEDS: FAMOTIDINE 20MG TABLET PO SCH (08:26)
[2021-09-26] MEDS: GABAPENTIN 100MG CAPSULE PO SCH ×3 (09:20→16:21)
[2021-09-26 12:00] VITALS: BP 154/58
[2021-09-26 16:00] VITALS: BP 143/75
[2021-09-26 20:00] VITALS: BP 132/35
[2021-09-26] MEDS: EPOETIN ALFA-EPBX 10,000 UNIT/ML VIAL SUBCUT SCH (21:13)
[2021-09-27] VITALS: BP 151/74
[2021-09-27 04:00] VITALS: BP 132/67
[2021-09-27] MEDS: BLOOD SUGAR DIAGNOSTIC STRIP TEST SCH ×4 (07:40→21:19)
[2021-09-27 08:00] VITALS: BP 139/65
[2021-09-27] MEDS: AMLODIPINE 10MG TABLET PO SCH (08:09)
[2021-09-27] MEDS: LEVOTHYROXINE SODIUM 137MCG TABLET PO SCH (08:09)
[2021-09-27] MEDS: FAMOTIDINE 20MG TABLET PO SCH (08:09)
[2021-09-27] MEDS: GABAPENTIN 100MG CAPSULE PO SCH ×3 (08:09→16:24)
[2021-09-27] MEDS: INSULIN LISPRO 100 UNITS/ML SUBCUT SCH ×4 (08:10→21:00)
[2021-09-27 09:41] LABS: BASOPHILS % 0.4 % (0.0-2.0); EOSINOPHILS % 2.9 % (0.0-5.0); HEMATOCRIT. 24.1 % (36.0-48.0); HEMOGLOBIN. 7.9 g/dL (12.0-16.0); LYMPHOCYTES % 25.7 % (20.0-50.0); MEAN CORPUSCULAR HEMOGLOBIN 30.1 pg (28.0-32.0); MEAN CORPUSCULAR VOLUME 91.5 fL (81.0-99.0); MEAN PLATELET VOLUME 9.1 fl (7.4-10.4); MONOCYTES % 7.4 % (2.0-8.0); NEUTROPHILS % 63.6 % (40.0-76.0); PLATELET 310 x1000/uL (130-400); RED BLOOD CELL COUNT 2.63 mill/uL (4.2-5.4); RED CELL DISTRIBUTION WIDTH 17.1 % (11.6-14.6)
[2021-09-27 12:00] VITALS: BP 152/80
[2021-09-27] MEDS: MORPHINE SULFATE 4 MG/ML CPJ (NOT FOR IM USE) IV PRN (14:58)
[2021-09-27 16:00] VITALS: BP 140/67
[2021-09-27] MEDS: ONDANSETRON HCL 4MG/2ML INJ IV PRN (16:36)
[2021-09-27 20:00] VITALS: BP 123/70
[2021-09-27] MEDS: ZOLPIDEM TARTRATE 5MG TABLET PO PRN (21:19)
[2021-09-28] VITALS (7 sets, daily range): BP systolic 120–176; BP diastolic 59–79
[2021-09-28] MEDS: HYDROCODONE/ACETAMINOPHEN 5/325MG TABLET PO PRN ×2 (05:25→21:09)
[2021-09-28] MEDS: INSULIN LISPRO 100 UNITS/ML SUBCUT SCH ×4 (07:49→20:42)
[2021-09-28] MEDS: BLOOD SUGAR DIAGNOSTIC STRIP TEST SCH ×4 (07:49→21:04)
[2021-09-28] MEDS: AMLODIPINE 10MG TABLET PO SCH (07:50)
[2021-09-28] MEDS: LEVOTHYROXINE SODIUM 137MCG TABLET PO SCH (08:16)
[2021-09-28] MEDS: FAMOTIDINE 20MG TABLET PO SCH (08:16)
[2021-09-28] MEDS: GABAPENTIN 100MG CAPSULE PO SCH ×3 (08:17→18:32)
[2021-09-28 08:32] LABS: BASOPHILS % 0.3 % (0.0-2.0); EOSINOPHILS % 3.1 % (0.0-5.0); HEMATOCRIT. 24.8 % (36.0-48.0); HEMOGLOBIN. 8.3 g/dL (12.0-16.0); MEAN CORPUSCULAR HEMOGLOBIN 30.5 pg (28.0-32.0); MEAN CORPUSCULAR VOLUME 91.5 fL (81.0-99.0); MEAN PLATELET VOLUME 8.8 fl (7.4-10.4); MONOCYTES % 7.5 % (2.0-8.0); NEUTROPHILS % 65.1 % (40.0-76.0); PLATELET 379 x1000/uL (130-400); RED BLOOD CELL COUNT 2.71 mill/uL (4.2-5.4)
[2021-09-28] MEDS: MORPHINE SULFATE 4 MG/ML CPJ (NOT FOR IM USE) IV PRN ×2 (11:38→16:52)
[2021-09-28] MEDS ORDERED: HYDRALAZINE 10 MG in SODIUM CHLORIDE 0.9% 49.5 ML IV PRN (14:15)
[2021-09-28] MEDS: ONDANSETRON HCL 4MG/2ML INJ IV PRN (20:32)
[2021-09-28] MEDS: EPOETIN ALFA-EPBX 10,000 UNIT/ML VIAL SUBCUT SCH (21:01)
[2021-09-28] MEDS: ZOLPIDEM TARTRATE 5MG TABLET PO PRN (22:00)
[2021-09-29] VITALS: BP 182/62
[2021-09-29] MEDS: CLONIDINE 0.1MG TABLET PO PRN ×2 (02:23→09:03)
[2021-09-29 04:00] VITALS: BP 140/47
[2021-09-29] MEDS: LEVOTHYROXINE SODIUM 137MCG TABLET PO SCH (06:20)
[2021-09-29] MEDS: BLOOD SUGAR DIAGNOSTIC STRIP TEST SCH ×4 (07:20→20:42)
[2021-09-29] MEDS: INSULIN LISPRO 100 UNITS/ML SUBCUT SCH ×4 (07:50→20:41)
[2021-09-29 08:00] VITALS: BP 165/56
[2021-09-29] MEDS: AMLODIPINE 10MG TABLET PO SCH (09:03)
[2021-09-29] MEDS: GABAPENTIN 100MG CAPSULE PO SCH ×4 (09:03→16:17)
[2021-09-29] MEDS: FAMOTIDINE 20MG TABLET PO SCH (09:03)
[2021-09-29 09:08] LABS: BASOPHILS % 0.7 % (0.0-2.0); EOSINOPHILS % 2.7 % (0.0-5.0); HEMATOCRIT. 24.2 % (36.0-48.0); LYMPHOCYTES % 37.3 % (20.0-50.0); MEAN CORPUSCULAR HEMOGLOBIN 30.1 pg (28.0-32.0); MEAN CORPUSCULAR VOLUME 91.3 fL (81.0-99.0); MEAN PLATELET VOLUME 8.4 fl (7.4-10.4); MONOCYTES % 8.6 % (2.0-8.0); NEUTROPHILS % 50.7 % (40.0-76.0); PLATELET 377 x1000/uL (130-400); RED BLOOD CELL COUNT 2.65 mill/uL (4.2-5.4); RED CELL DISTRIBUTION WIDTH 16.9 % (11.6-14.6)
[2021-09-29] MEDS: MORPHINE SULFATE 4 MG/ML CPJ (NOT FOR IM USE) IV PRN ×2 (09:09→16:17)
[2021-09-29 12:00] VITALS: BP 135/69
[2021-09-29 16:00] VITALS: BP 154/52
[2021-09-29 20:00] VITALS: BP 157/76
[2021-09-29] MEDS: HYDROCODONE/ACETAMINOPHEN 5/325MG TABLET PO PRN (20:50)
[2021-09-29] MEDS: ZOLPIDEM TARTRATE 5MG TABLET PO PRN (22:07)
[2021-09-30] VITALS: BP 146/74
[2021-09-30 04:00] VITALS: BP 157/76
[2021-09-30] MEDS: ONDANSETRON HCL 4MG/2ML INJ IV PRN (04:22)
[2021-09-30] MEDS: MORPHINE SULFATE 4 MG/ML CPJ (NOT FOR IM USE) IV PRN (04:23)
[2021-09-30] MEDS: LEVOTHYROXINE SODIUM 137MCG TABLET PO SCH (06:18)
[2021-09-30] MEDS: BLOOD SUGAR DIAGNOSTIC STRIP TEST SCH ×4 (06:38→21:34)
[2021-09-30 07:28] LABS: BASOPHILS % 0.6 % (0.0-2.0); EOSINOPHILS % 3.8 % (0.0-5.0); HEMATOCRIT. 23.9 % (36.0-48.0); HEMOGLOBIN. 7.9 g/dL (12.0-16.0); LYMPHOCYTES % 33.3 % (20.0-50.0); MEAN CORPUSCULAR HEMOGLOBIN 30.1 pg (28.0-32.0); MEAN CORPUSCULAR VOLUME 90.9 fL (81.0-99.0); MONOCYTES % 8.2 % (2.0-8.0); NEUTROPHILS % 54.1 % (40.0-76.0); PLATELET 393 x1000/uL (130-400); RED BLOOD CELL COUNT 2.63 mill/uL (4.2-5.4)
[2021-09-30 08:00] VITALS: BP 142/78
[2021-09-30] MEDS: AMLODIPINE 10MG TABLET PO SCH (09:00)
[2021-09-30] MEDS: GABAPENTIN 100MG CAPSULE PO SCH ×3 (09:00→18:04)
[2021-09-30] MEDS: INSULIN LISPRO 100 UNITS/ML SUBCUT SCH ×4 (09:48→21:33)
[2021-09-30] MEDS: FAMOTIDINE 20MG TABLET PO SCH (09:48)
[2021-09-30 12:00] VITALS: BP 138/70
[2021-09-30] MEDS ORDERED: HYDROCODONE/ACETAMINOPHEN 5/325MG TABLET PO PRN (12:15)
[2021-09-30] MEDS ORDERED: MORPHINE SULFATE 4 MG/ML CPJ (NOT FOR IM USE) IV PRN (12:15)
[2021-09-30] MEDS: CLONIDINE 0.1MG TABLET PO PRN (15:25)
[2021-09-30 16:00] VITALS: BP 167/59
[2021-09-30] MEDS ORDERED: *PATIENT'S OWN MEDICATION STORAGE XX SCH (16:15)
[2021-09-30] MEDS: HYDROCODONE/ACETAMINOPHEN 10/325MG TABLET PO PRN ×2 (18:04→22:38)
[2021-09-30 20:00] VITALS: BP 127/48
[2021-09-30] MEDS ORDERED: EPOETIN ALFA-EPBX 10,000 UNIT/ML VIAL SUBCUT SCH (21:00)
[2021-10-01] VITALS: BP 161/53
[2021-10-01 04:00] VITALS: BP 143/46
[2021-10-01] MEDS: HYDROCODONE/ACETAMINOPHEN 10/325MG TABLET PO PRN ×4 (04:26→22:10)
[2021-10-01] MEDS: LEVOTHYROXINE SODIUM 137MCG TABLET PO SCH (06:50)
[2021-10-01] MEDS: BLOOD SUGAR DIAGNOSTIC STRIP TEST SCH ×4 (07:20→21:00)
[2021-10-01 07:42] LABS: BASOPHILS % 0.7 % (0.0-2.0); EOSINOPHILS % 2.9 % (0.0-5.0); LYMPHOCYTES % 29.5 % (20.0-50.0); MEAN CORPUSCULAR HEMOGLOBIN 29.8 pg (28.0-32.0); MEAN CORPUSCULAR VOLUME 92.5 fL (81.0-99.0); MEAN PLATELET VOLUME 8.2 fl (7.4-10.4); MONOCYTES % 6.7 % (2.0-8.0); NEUTROPHILS % 60.2 % (40.0-76.0); PLATELET 422 x1000/uL (130-400); RED BLOOD CELL COUNT 3.22 mill/uL (4.2-5.4); RED CELL DISTRIBUTION WIDTH 16.9 % (11.6-14.6)
[2021-10-01] MEDS: INSULIN LISPRO 100 UNITS/ML SUBCUT SCH ×4 (07:50→21:00)
[2021-10-01 08:00] VITALS: BP 164/70
[2021-10-01] MEDS: AMLODIPINE 10MG TABLET PO SCH (08:29)
[2021-10-01] MEDS: GABAPENTIN 100MG CAPSULE PO SCH ×3 (08:30→16:07)
[2021-10-01] MEDS: FAMOTIDINE 20MG TABLET PO SCH (08:30)
[2021-10-01 08:35] LABS: HEMATOCRIT. 29.8 % (36.0-48.0); HEMOGLOBIN. 9.6 g/dL (12.0-16.0)
[2021-10-01 12:00] VITALS: BP 145/79
[2021-10-01 16:00] VITALS: BP 157/70
[2021-10-01] MEDS: ONDANSETRON HCL 4MG/2ML INJ IV PRN (16:09)
[2021-10-01 20:00] VITALS: BP 171/90
[2021-10-01] MEDS: CLONIDINE 0.1MG TABLET PO PRN (22:15)
[2021-10-02] VITALS: BP 117/58
[2021-10-02 04:00] VITALS: BP 135/63
[2021-10-02] MEDS: LEVOTHYROXINE SODIUM 137MCG TABLET PO SCH (06:28)
[2021-10-02] MEDS: BLOOD SUGAR DIAGNOSTIC STRIP TEST SCH ×4 (06:48→21:19)
[2021-10-02] MEDS: INSULIN LISPRO 100 UNITS/ML SUBCUT SCH ×4 (06:54→21:00)
[2021-10-02 08:00] VITALS: BP 159/76
[2021-10-02] MEDS: GABAPENTIN 100MG CAPSULE PO SCH ×3 (08:39→16:54)
[2021-10-02] MEDS: FAMOTIDINE 20MG TABLET PO SCH (08:39)
[2021-10-02] MEDS: AMLODIPINE 10MG TABLET PO SCH (08:41)
[2021-10-02 10:20] LABS: BASOPHILS % 0.5 % (0.0-2.0); HEMATOCRIT. 29.6 % (36.0-48.0); HEMOGLOBIN. 9.7 g/dL (12.0-16.0); LYMPHOCYTES % 33.8 % (20.0-50.0); MEAN CORPUSCULAR HEMOGLOBIN 30.3 pg (28.0-32.0); MEAN CORPUSCULAR VOLUME 92.9 fL (81.0-99.0); MEAN PLATELET VOLUME 7.7 fl (7.4-10.4); MONOCYTES % 6.9 % (2.0-8.0); NEUTROPHILS % 54.8 % (40.0-76.0); PLATELET 458 x1000/uL (130-400); RED BLOOD CELL COUNT 3.19 mill/uL (4.2-5.4); RED CELL DISTRIBUTION WIDTH 17.1 % (11.6-14.6)
[2021-10-02 12:00] VITALS: BP 150/70
[2021-10-02] MEDS: HYDROCODONE/ACETAMINOPHEN 10/325MG TABLET PO PRN ×4 (13:12→21:20)
[2021-10-02 16:00] VITALS: BP 162/60
[2021-10-02] MEDS: CLONIDINE 0.1MG TABLET PO PRN (16:54)
[2021-10-02] MEDS ORDERED: POLYETHYLENE GLYCOL 3350 (17GM) 1 DOSE PACK PO SCH (18:00)
[2021-10-02] MEDS: POLYETHYLENE GLYCOL 3350 (17GM) 1 DOSE PACK PO SCH (18:29)
[2021-10-02 20:00] VITALS: BP 156/81
[2021-10-02] MEDS: ZOLPIDEM TARTRATE 5MG TABLET PO PRN (22:29)
[2021-10-03] VITALS: BP 150/76
[2021-10-03 04:00] VITALS: BP 125/53
[2021-10-03] MEDS: LEVOTHYROXINE SODIUM 137MCG TABLET PO SCH (05:59)
[2021-10-03] MEDS: HYDROCODONE/ACETAMINOPHEN 10/325MG TABLET PO PRN ×3 (06:01→19:15)
[2021-10-03] MEDS: BLOOD SUGAR DIAGNOSTIC STRIP TEST SCH ×4 (06:35→21:00)
[2021-10-03 07:49] LABS: BASOPHILS % 0.5 % (0.0-2.0); EOSINOPHILS % 1.7 % (0.0-5.0); HEMATOCRIT. 25.7 % (36.0-48.0); HEMOGLOBIN. 8.4 g/dL (12.0-16.0); LYMPHOCYTES % 16.2 % (20.0-50.0); MEAN CORPUSCULAR HEMOGLOBIN 30.2 pg (28.0-32.0); MEAN CORPUSCULAR VOLUME 92.7 fL (81.0-99.0); MEAN PLATELET VOLUME 7.7 fl (7.4-10.4); MONOCYTES % 5.5 % (2.0-8.0); NEUTROPHILS % 76.1 % (40.0-76.0); PLATELET 405 x1000/uL (130-400); RED BLOOD CELL COUNT 2.78 mill/uL (4.2-5.4); RED CELL DISTRIBUTION WIDTH 17.6 % (11.6-14.6)
[2021-10-03 08:00] VITALS: BP 164/81
[2021-10-03] MEDS: POLYETHYLENE GLYCOL 3350 (17GM) 1 DOSE PACK PO SCH (09:00)
[2021-10-03] MEDS: FAMOTIDINE 20MG TABLET PO SCH (10:22)
[2021-10-03] MEDS: AMLODIPINE 10MG TABLET PO SCH (10:23)
[2021-10-03] MEDS: GABAPENTIN 100MG CAPSULE PO SCH ×3 (10:23→17:00)
[2021-10-03] MEDS: INSULIN LISPRO 100 UNITS/ML SUBCUT SCH ×4 (10:36→21:50)
[2021-10-03] MEDS ORDERED: LACTULOSE 20G/30ML UDC PO PRN (11:30)
[2021-10-03 12:00] VITALS: BP 129/53
[2021-10-03 16:00] VITALS: BP 154/68
[2021-10-03 20:48] VITALS: BP 197/74
[2021-10-03] MEDS: ZOLPIDEM TARTRATE 5MG TABLET PO PRN (21:50)
[2021-10-03] MEDS: EPOETIN ALFA 10000UNITS/ML VIAL SUBCUT SCH (21:55)
[2021-10-04] VITALS: BP 118/55
[2021-10-04 04:00] VITALS: BP 144/49
[2021-10-04] MEDS: LEVOTHYROXINE SODIUM 137MCG TABLET PO SCH (06:56)
[2021-10-04] MEDS: BLOOD SUGAR DIAGNOSTIC STRIP TEST SCH ×4 (07:01→21:00)
[2021-10-04] MEDS: INSULIN LISPRO 100 UNITS/ML SUBCUT SCH ×4 (07:50→23:19)
[2021-10-04 08:00] VITALS: BP 157/98
[2021-10-04] MEDS: GABAPENTIN 100MG CAPSULE PO SCH ×3 (09:39→17:47)
[2021-10-04] MEDS: FAMOTIDINE 20MG TABLET PO SCH (09:39)
[2021-10-04] MEDS: AMLODIPINE 10MG TABLET PO SCH (09:40)
[2021-10-04 12:00] VITALS: BP 137/56
[2021-10-04 16:00] VITALS: BP 160/69
[2021-10-04 20:00] VITALS: BP 154/71
[2021-10-04] MEDS: ZOLPIDEM TARTRATE 5MG TABLET PO PRN (23:02)
[2021-10-05] VITALS: BP 152/77
[2021-10-05] MEDS: HYDROCODONE/ACETAMINOPHEN 10/325MG TABLET PO PRN ×2 (00:49→10:13)
[2021-10-05 04:00] VITALS: BP 119/58
[2021-10-05] MEDS: BLOOD SUGAR DIAGNOSTIC STRIP TEST SCH ×4 (06:26→21:00)
[2021-10-05] MEDS: LEVOTHYROXINE SODIUM 137MCG TABLET PO SCH (06:26)
[2021-10-05 06:51] LABS: BASOPHILS % 0.4 % (0.0-2.0); EOSINOPHILS % 4.6 % (0.0-5.0); HEMATOCRIT. 23.7 % (36.0-48.0); LYMPHOCYTES % 32.8 % (20.0-50.0); MEAN CORPUSCULAR HEMOGLOBIN 31.2 pg (28.0-32.0); MEAN CORPUSCULAR VOLUME 92.3 fL (81.0-99.0); MEAN PLATELET VOLUME 7.8 fl (7.4-10.4); MONOCYTES % 6.9 % (2.0-8.0); NEUTROPHILS % 55.3 % (40.0-76.0); PLATELET 348 x1000/uL (130-400); RED BLOOD CELL COUNT 2.57 mill/uL (4.2-5.4); RED CELL DISTRIBUTION WIDTH 17.6 % (11.6-14.6)
[2021-10-05] MEDS: INSULIN LISPRO 100 UNITS/ML SUBCUT SCH ×4 (07:43→22:09)
[2021-10-05 08:00] VITALS: BP 169/67
[2021-10-05] MEDS: AMLODIPINE 10MG TABLET PO SCH (08:15)
[2021-10-05] MEDS: GABAPENTIN 100MG CAPSULE PO SCH ×3 (08:28→17:47)
[2021-10-05] MEDS: FAMOTIDINE 20MG TABLET PO SCH (08:28)
[2021-10-05 12:00] VITALS: BP 118/32
[2021-10-05] MEDS: TRAMADOL 50MG TABLET PO PRN (14:55)
[2021-10-05 16:00] VITALS: BP 134/59
[2021-10-05 20:00] VITALS: BP 139/70
[2021-10-05] MEDS: EPOETIN ALFA 10000UNITS/ML VIAL SUBCUT SCH (21:00)
[2021-10-05] MEDS: INSULIN GLARGINE 100 UNITS/ML SUBCUT SCH (22:08)
[2021-10-05] MEDS: ZOLPIDEM TARTRATE 5MG TABLET PO PRN (22:16)
[2021-10-06] VITALS: BP 192/75
[2021-10-06] MEDS: CLONIDINE 0.1MG TABLET PO PRN ×2 (00:05→08:58)
[2021-10-06] MEDS: TRAMADOL 50MG TABLET PO PRN ×3 (00:27→16:55)
[2021-10-06 04:00] VITALS: BP 149/64
[2021-10-06] MEDS: LEVOTHYROXINE SODIUM 137MCG TABLET PO SCH (06:27)
[2021-10-06] MEDS: BLOOD SUGAR DIAGNOSTIC STRIP TEST SCH ×4 (06:27→20:40)
[2021-10-06] MEDS: INSULIN LISPRO 100 UNITS/ML SUBCUT SCH ×4 (07:50→21:53)
[2021-10-06 08:00] VITALS: BP 145/75
[2021-10-06] MEDS: FAMOTIDINE 20MG TABLET PO SCH (08:54)
[2021-10-06] MEDS: AMLODIPINE 10MG TABLET PO SCH (08:54)
[2021-10-06] MEDS: GABAPENTIN 100MG CAPSULE PO SCH ×3 (08:54→16:54)
[2021-10-06] MEDS: INSULIN GLARGINE 100 UNITS/ML SUBCUT SCH ×2 (09:07→21:53)
[2021-10-06] MEDS: HYDROCODONE/ACETAMINOPHEN 10/325MG TABLET PO PRN ×2 (11:02→21:55)
[2021-10-06 12:00] VITALS: BP_SYST 169; BP_DIAS 181; BP_DIAS 81
[2021-10-06 16:00] VITALS: BP 121/39
[2021-10-06] MEDS: ACETAMINOPHEN 325MG TABLET PO PRN (16:55)
[2021-10-06 20:00] VITALS: BP 172/70
[2021-10-06] MEDS: ZOLPIDEM TARTRATE 5MG TABLET PO PRN (22:01)
[2021-10-07] VITALS (7 sets, daily range): BP systolic 130–167; BP diastolic 55–77
[2021-10-07] MEDS: LEVOTHYROXINE SODIUM 137MCG TABLET PO SCH (06:37)
[2021-10-07] MEDS: BLOOD SUGAR DIAGNOSTIC STRIP TEST SCH ×4 (06:38→20:32)
[2021-10-07] MEDS: TRAMADOL 50MG TABLET PO PRN ×2 (06:43→20:30)
[2021-10-07 07:53] LABS: BASOPHILS % 0.4 % (0.0-2.0); EOSINOPHILS % 4.7 % (0.0-5.0); HEMATOCRIT. 26.7 % (36.0-48.0); HEMOGLOBIN. 8.8 g/dL (12.0-16.0); LYMPHOCYTES % 27.6 % (20.0-50.0); MEAN CORPUSCULAR HEMOGLOBIN 30.8 pg (28.0-32.0); MEAN CORPUSCULAR VOLUME 93.2 fL (81.0-99.0); MONOCYTES % 6.6 % (2.0-8.0); NEUTROPHILS % 60.7 % (40.0-76.0); PLATELET 358 x1000/uL (130-400); RED BLOOD CELL COUNT 2.86 mill/uL (4.2-5.4); RED CELL DISTRIBUTION WIDTH 17.5 % (11.6-14.6)
[2021-10-07] MEDS: FAMOTIDINE 20MG TABLET PO SCH (08:21)
[2021-10-07] MEDS: GABAPENTIN 100MG CAPSULE PO SCH ×3 (08:21→18:32)
[2021-10-07] MEDS: AMLODIPINE 10MG TABLET PO SCH (08:23)
[2021-10-07] MEDS: INSULIN LISPRO 100 UNITS/ML SUBCUT SCH ×4 (08:28→20:19)
[2021-10-07] MEDS: HYDROCODONE/ACETAMINOPHEN 10/325MG TABLET PO PRN ×2 (09:24→14:54)
[2021-10-07] MEDS: INSULIN GLARGINE 100 UNITS/ML SUBCUT SCH ×2 (11:59→21:08)
[2021-10-07] MEDS ORDERED: NALOXONE HCL 0.4MG/ML VIAL IV PRN (17:30)
[2021-10-07] MEDS: ONDANSETRON HCL 4MG/2ML INJ IV PRN (19:14)
[2021-10-07] MEDS: EPOETIN ALFA 10000UNITS/ML VIAL SUBCUT SCH (20:21)
[2021-10-08] VITALS (7 sets, daily range): BP systolic 121–171; BP diastolic 60–78
[2021-10-08] MEDS: CLONIDINE 0.1MG TABLET PO PRN (05:59)
[2021-10-08] MEDS: LEVOTHYROXINE SODIUM 137MCG TABLET PO SCH (06:00)
[2021-10-08] MEDS: TRAMADOL 50MG TABLET PO PRN (06:01)
[2021-10-08] MEDS: INSULIN LISPRO 100 UNITS/ML SUBCUT SCH ×3 (07:50→18:05)
[2021-10-08] MEDS: BLOOD SUGAR DIAGNOSTIC STRIP TEST SCH ×3 (08:10→17:52)
[2021-10-08] MEDS: GABAPENTIN 100MG CAPSULE PO SCH ×3 (08:52→17:52)
[2021-10-08] MEDS: FAMOTIDINE 20MG TABLET PO SCH (08:53)
[2021-10-08] MEDS: AMLODIPINE 10MG TABLET PO SCH (08:53)
[2021-10-08] MEDS: HYDROCODONE/ACETAMINOPHEN 10/325MG TABLET PO PRN ×2 (09:00→17:52)
[2021-10-08] MEDS: INSULIN GLARGINE 100 UNITS/ML SUBCUT SCH (10:33)
[2021-10-08] MEDS: ONDANSETRON HCL 4MG/2ML INJ IV PRN (13:23)
== END 2021-10-08 20:46 | DRG 347 ==
LOC: ER 09:23 → 7EST 13:52 → EDBEDREQ 14:11 → EDBEDREQTM 14:11 → ENRESERV 15:17 → 7WST 09-24 14:57 → 6EST 09-28 13:50
PROVIDERS: ADMIT Internal Medicine; ATTEND Internal Medicine
PROC: 5A1D70Z Performance of Urinary Filtration, Intermittent, Less than 6 Hours Per Day (ICD-10-PCS; 2021-09-19)
PROC: 0JBR0ZZ Excision of Left Foot Subcutaneous Tissue and Fascia, Open Approach (ICD-10-PCS; 2021-09-20)
PROC: 02HV33Z Insertion of Infusion Device into Superior Vena Cava, Percutaneous Approach (ICD-10-PCS; 2021-09-21)
PROC: B548ZZA Ultrasonography of Superior Vena Cava, Guidance (ICD-10-PCS; 2021-09-21)
PROC: B5181ZA Fluoroscopy of Superior Vena Cava using Low Osmolar Contrast, Guidance (ICD-10-PCS; 2021-09-21)
PROC: 5A1D70Z Performance of Urinary Filtration, Intermittent, Less than 6 Hours Per Day (ICD-10-PCS; 2021-09-21)
PROC: 5A1D70Z Performance of Urinary Filtration, Intermittent, Less than 6 Hours Per Day (ICD-10-PCS; 2021-09-23)
PROC: 5A1D70Z Performance of Urinary Filtration, Intermittent, Less than 6 Hours Per Day (ICD-10-PCS; 2021-09-26)
PROC: 5A1D70Z Performance of Urinary Filtration, Intermittent, Less than 6 Hours Per Day (ICD-10-PCS; 2021-09-28)
PROC: 5A1D70Z Performance of Urinary Filtration, Intermittent, Less than 6 Hours Per Day (ICD-10-PCS; 2021-09-30)
PROC: 0JBR0ZZ Excision of Left Foot Subcutaneous Tissue and Fascia, Open Approach (ICD-10-PCS; principal; 2021-10-01)
PROC: 5A1D70Z Performance of Urinary Filtration, Intermittent, Less than 6 Hours Per Day (ICD-10-PCS; 2021-10-03)
PROC: 5A1D70Z Performance of Urinary Filtration, Intermittent, Less than 6 Hours Per Day (ICD-10-PCS; 2021-10-05)
PROC: 5A1D70Z Performance of Urinary Filtration, Intermittent, Less than 6 Hours Per Day (ICD-10-PCS; 2021-10-07)
DX: S32.110A Nondisplaced Zone I fracture of sacrum, initial encounter for closed fracture (principal); I12.0 Hypertensive chronic kidney disease with stage 5 chronic kidney disease or end stage renal disease; E11.22 Type 2 diabetes mellitus with diabetic chronic kidney disease; S91.302A Unspecified open wound, left foot, initial encounter; E03.9 Hypothyroidism, unspecified; E78.00 Pure hypercholesterolemia, unspecified; I16.0 Hypertensive urgency; N18.6 End stage renal disease; F31.9 Bipolar disorder, unspecified; F41.9 Anxiety disorder, unspecified; M47.896 Other spondylosis, lumbar region; R26.9 Unspecified abnormalities of gait and mobility; Z20.822 Contact with and (suspected) exposure to COVID-19; M51.36 Other intervertebral disc degeneration, lumbar region; W01.0XXA Fall on same level from slipping, tripping and stumbling without subsequent striking against object, initial encounter; E86.0 Dehydration; Z82.49 Family history of ischemic heart disease and other diseases of the circulatory system; Z83.3 Family history of diabetes mellitus; Z99.2 Dependence on renal dialysis; Y93.89 Activity, other specified; Y92.89 Other specified places as the place of occurrence of the external cause; Y99.8 Other external cause status; Z79.4 Long term (current) use of insulin; Z79.899 Other long term (current) drug therapy; Z88.2 Allergy status to sulfonamides; Z79.01 Long term (current) use of anticoagulants
CPT/HCPCS: 36415; 36573; 72141; 72146; 72148; 72170; 74177; 80048; 80053; 82962; 83036; 85025; 85027; 85651; 86705; 86709; 86803; 87340; 87426; 93970; 97110; 97162; 97166; 97530; 97535; 99285; C1725; C9113; J0885; J1815; J2270; J2405; J3490; Q9967